=== PATIENT | female | born 1955 | race African-American/Black ===

== ENCOUNTER 2022-12-11 15:21 | Emergency (ER) | payer OTHER, MEDICAID ==
[~2022-12-11] VITALS: Ht 160 cm; Wt 90.0 kg
[2022-12-11] MEDS: HYDRALAZINE HCL 25MG TABLET PO ONE (17:18)
[2022-12-11] MEDS: ACETAMINOPHEN 325MG TABLET PO ONE (17:19)
[2022-12-11] MEDS: AMLODIPINE 5MG TABLET PO NR (21:45)
[2022-12-11] MEDS ORDERED: LOSA1TAB34 MT (21:50)
[2022-12-12 01:11] VITALS: BP 177/95
== END 2022-12-12 01:12 | disposition home or self-care (01) ==
LOC: ER 15:21
DX: I12.0 Hypertensive chronic kidney disease with stage 5 chronic kidney disease or end stage renal disease (principal); E11.22 Type 2 diabetes mellitus with diabetic chronic kidney disease; N18.6 End stage renal disease; Z99.2 Dependence on renal dialysis; J44.9 Chronic obstructive pulmonary disease, unspecified; I48.91 Unspecified atrial fibrillation; Z88.0 Allergy status to penicillin
CPT/HCPCS: 36415; 80048; 99284

== ENCOUNTER 2022-12-29 22:37 | Emergency (ER) | payer OTHER, MEDICAID ==
[~2022-12-29] VITALS: Ht 160 cm; Wt 84.0 kg
[~2022-12-29 22:37] MED LIST: LOSA1TAB34 MT
[2022-12-30 02:12] LABS: BASOPHILS % 2.1 % (0.0-2.0); EOSINOPHILS % 2.6 % (0.0-5.0); HEMATOCRIT. 35.2 % (36.0-48.0); HEMOGLOBIN. 11.6 g/dL (12.0-16.0); LYMPHOCYTES % 10.1 % (20.0-50.0); MEAN CORPUSCULAR HEMOGLOBIN 28.5 pg (28.0-32.0); MEAN CORPUSCULAR VOLUME 86.8 fL (81.0-99.0); MONOCYTES % 12.5 % (2.0-8.0); NEUTROPHILS % 72.7 % (40.0-76.0); PLATELET 83 x1000/uL (130-400); RED BLOOD CELL COUNT 4.06 mill/uL (4.2-5.4); RED CELL DISTRIBUTION WIDTH 18.7 % (11.6-14.6)
[2022-12-30 02:26] LABS: CHLORIDE 96 mEq/L (98-107)
[2022-12-30 02:59] LABS: D-DIMER 3.73 mg/L FEU (<0.50); INR 1.3; PARTIAL THROMBOPLASTIN TIME 42.7 sec (23.4-31.0); PROTHROMBIN TIME 13.8 sec (9.6-11.0)
[2022-12-30] MEDS ORDERED: LIDOCAINE HCL 1% 20ML VIAL (Pyxis) INJ INFIL ONE (10:00)
[2022-12-30] MEDS ORDERED: IOHEXOL-350 100 ML BOTTLE ONE (11:29)
[2022-12-30 13:29] VITALS: BP 158/76
== END 2022-12-30 19:40 | disposition home or self-care (01) ==
LOC: ER 22:57
DX: R60.0 Localized edema (principal); R06.02 Shortness of breath; E11.22 Type 2 diabetes mellitus with diabetic chronic kidney disease; I13.2 Hypertensive heart and chronic kidney disease with heart failure and with stage 5 chronic kidney disease, or end stage renal disease; I50.9 Heart failure, unspecified; N18.6 End stage renal disease; I48.91 Unspecified atrial fibrillation; E78.00 Pure hypercholesterolemia, unspecified; Z99.81 Dependence on supplemental oxygen; Z93.0 Tracheostomy status; Z99.2 Dependence on renal dialysis; Z79.01 Long term (current) use of anticoagulants; Z88.6 Allergy status to analgesic agent; Z88.0 Allergy status to penicillin
CPT/HCPCS: 36415; 36573; 71045; 71275; 80053; 83880; 85025; 85379; 85610; 85730; 93005; 93970; 93971; 99285; C1725; Q9967

== ENCOUNTER 2023-01-01 05:24 | Emergency (ER) | payer OTHER, MEDICAID ==
[~2023-01-01] VITALS: Ht 160 cm; Wt 82.0 kg
[2023-01-01] MEDS ORDERED: LIDOCAINE HCL/EPINEPHRINE 1%-EPI 1:100,000 20 ML VIAL INFIL ONE (06:00)
[2023-01-01] MEDS ORDERED: HYDRALAZINE 20MG/ML VIAL IV ONE (10:45)
[2023-01-01] MEDS ORDERED: HYDRALAZINE HCL 50MG TABLET PO ONE (13:00)
[2023-01-01 13:35] VITALS: BP 174/73
== END 2023-01-01 13:37 | disposition home or self-care (01) ==
LOC: ER 05:24
DX: S41.111A Laceration without foreign body of right upper arm, initial encounter (principal); I48.91 Unspecified atrial fibrillation; J44.9 Chronic obstructive pulmonary disease, unspecified; E78.00 Pure hypercholesterolemia, unspecified; X58.XXXA Exposure to other specified factors, initial encounter; Y93.89 Activity, other specified; Y92.9 Unspecified place or not applicable; I13.2 Hypertensive heart and chronic kidney disease with heart failure and with stage 5 chronic kidney disease, or end stage renal disease; E11.22 Type 2 diabetes mellitus with diabetic chronic kidney disease; N18.6 End stage renal disease; I50.9 Heart failure, unspecified; Z99.2 Dependence on renal dialysis; Z88.0 Allergy status to penicillin; Z88.6 Allergy status to analgesic agent; Z88.8 Allergy status to other drugs, medicaments and biological substances; Z93.0 Tracheostomy status
CPT/HCPCS: 12001; 99283; J3490

== ENCOUNTER 2023-03-11 15:05 | Emergency (ER) | payer OTHER, MEDICAID ==
[~2023-03-11] VITALS: Ht 172.7 cm; Wt 68.0 kg
[2023-03-11 17:04] LABS: HEMATOCRIT. 31.1 % (36.0-48.0); HEMOGLOBIN. 10.3 g/dL (12.0-16.0); MEAN CORPUSCULAR HEMOGLOBIN 28.3 pg (28.0-32.0); MEAN CORPUSCULAR VOLUME 85.5 fL (81.0-99.0); MEAN PLATELET VOLUME 8.5 fl (7.4-10.4); PLATELET 114 x1000/uL (130-400); RED BLOOD CELL COUNT 3.64 mill/uL (4.2-5.4)
[2023-03-11 17:12] LABS: CHLORIDE 95 mEq/L (98-107); INR 1.3
[2023-03-11 18:36] LABS: BG BASE EXCESS 5.2 mmol/L (-2.0-2.0); BG CARBOXYHEMOGLOBIN 0.4 % (0.5-1.5); BG DEOXYHEMOGLOBIN 1.2 % (0.0-5.0); BG FRACTION INSPIRED OXYGEN 36; BG HCO3 ACT 29.4 mmol/L (22.0-26.0); BG METHEMOGLOBIN 0.2 % (0.0-1.5); BG OXYGEN SATURATION 98.8 % (92.0-98.5); BG OXYHEMOGLOBIN 98.2 % (94.0-97.0); BG PCO2 41.6 mmHg (35.0-45.0); BG PH 7.467 (7.350-7.450); BG PO2 136.4 mmHg (75.0-100.0); BG SAMPLE SITE RIGHT BRACHIAL; BG TOTAL HEMOGLOBIN 10.9 g/dL (12.0-18.0); BG VENT MODE NASAL CANNULA
[2023-03-11] MEDS ORDERED: FAMOTIDINE 20MG/2ML VIAL IV ONE (19:00)
[2023-03-11] MEDS ORDERED: DIPHENHYDRAMINE 50MG/ML VIAL IV ONE (19:00)
[2023-03-11] MEDS ORDERED: FENTANYL CITRATE/PF 50MCG/ML 2ML VIAL IV ONE (19:00)
[2023-03-11] MEDS ORDERED: LEVOFLOXACIN 750MG PREMIX 150 ML IV ONE (20:15)
[2023-03-11 21:30] LABS: PLATELET ESTIMATE DECREASED
[2023-03-11 22:04] VITALS: BP 136/76
== END 2023-03-11 21:58 | disposition short-term general hospital (02) ==
LOC: ER 15:05 → CANBEDREQ 22:24
DX: J44.1 Chronic obstructive pulmonary disease with (acute) exacerbation (principal); E11.22 Type 2 diabetes mellitus with diabetic chronic kidney disease; I12.0 Hypertensive chronic kidney disease with stage 5 chronic kidney disease or end stage renal disease; N18.6 End stage renal disease; E78.00 Pure hypercholesterolemia, unspecified; R18.8 Other ascites; J90 Pleural effusion, not elsewhere classified; Z88.0 Allergy status to penicillin; Z88.6 Allergy status to analgesic agent
CPT/HCPCS: 36415; 36600; 71045; 74176; 80053; 82375; 82805; 83605; 83690; 83880; 84484; 85025; 85610; 93005; 96365; 96375; 99291; J1200; J1956; J3010; J3490

== ENCOUNTER 2023-03-24 08:56 | Emergency (ER) | payer OTHER, MEDICAID ==
[~2023-03-24] VITALS: Ht 160 cm; Wt 68.0 kg
[2023-03-24 09:36] LABS: CHLORIDE 98 mEq/L (98-107)
[2023-03-24 09:37] LABS: INR 1.3; PROTHROMBIN TIME 13.5 sec (9.6-11.0)
[2023-03-24 09:38] LABS: HEMATOCRIT. 30.1 % (36.0-48.0); MEAN CORPUSCULAR HEMOGLOBIN 28.8 pg (28.0-32.0); MEAN CORPUSCULAR VOLUME 86.6 fL (81.0-99.0); MEAN PLATELET VOLUME 9.3 fl (7.4-10.4); PLATELET 97 x1000/uL (130-400); RED BLOOD CELL COUNT 3.48 mill/uL (4.2-5.4); RED CELL DISTRIBUTION WIDTH 19.9 % (11.6-14.6)
[2023-03-24 16:15] VITALS: BP 148/75
[2023-03-24 18:15] LABS: PLATELET ESTIMATE DECREASED
== END 2023-03-24 16:30 | disposition home or self-care (01) ==
LOC: ER 08:56
DX: R18.8 Other ascites (principal); J44.1 Chronic obstructive pulmonary disease with (acute) exacerbation; E11.9 Type 2 diabetes mellitus without complications; I11.0 Hypertensive heart disease with heart failure; I50.9 Heart failure, unspecified; Z88.0 Allergy status to penicillin; Z88.6 Allergy status to analgesic agent
CPT/HCPCS: 36415; 80053; 85025; 99283

== ENCOUNTER 2023-04-15 13:30 | Emergency (ER) | payer OTHER, MEDICAID ==
[~2023-04-15] VITALS: Ht 175.3 cm; Wt 82.0 kg
[2023-04-15 13:48] VITALS: O2SAT 99
[2023-04-15 14:29] LABS: BASOPHILS % 0.9 % (0.0-2.0); DIFFERENTIAL COMMENT 0; LYMPHOCYTES % 15.4 % (20.0-50.0); MEAN CORPUSCULAR HEMOGLOBIN 29.7 pg (28.0-32.0); MEAN PLATELET VOLUME 7.9 fl (7.4-10.4); MONOCYTES % 12.3 % (2.0-8.0); NEUTROPHILS % 69.4 % (40.0-76.0); PLATELET 172 x1000/uL (130-400); RED BLOOD CELL COUNT 2.12 mill/uL (4.2-5.4); RED CELL DISTRIBUTION WIDTH 18.8 % (11.6-14.6); WHITE BLOOD COUNT 6.1 x1000/uL (4.5-11.0)
[2023-04-15 14:31] LABS: HEMOGLOBIN. 6.3 g/dL (12.0-16.0)
[2023-04-15 14:37] LABS: CHLORIDE 99 mEq/L (98-107); INDEX HEMOLYSI 1 (1-3); INDEX ICTERIC 1 (1-4); INDEX LIPEMIC 1 (1-3); POTASSIUM 3.7 mEq/L (3.5-5.1); SODIUM 135 mEq/L (136-145)
[2023-04-15 14:44] LABS: ALANINE AMINOTRANSFERASE 14 IU/L (13-61); ALBUMIN 2.4 g/dL (3.4-5.0); ASPARTATE AMINOTRANSFERASE 18 IU/L (15-37); BILIRUBIN TOTAL 0.5 mg/dL (0.1-1.0); CARBON DIOXIDE 31 mEq/L (21-32); CREATININE 4.1 mg/dL (0.6-1.3); GLUCOSE 227 mg/dL (70-105); PROTEIN TOTAL 7.8 g/dL (6.0-8.3); UREA NITROGEN BLOOD 24 mg/dL (7-21)
[2023-04-15 23:09] LABS: HEMATOCRIT 23.4 % (36.0-48.0); HEMOGLOBIN 7.7 g/dL (12.0-16.0)
[2023-04-16 00:59] VITALS: BP 151/55; PULSE 68; RESP 17; TEMP 98
== END 2023-04-16 03:02 | disposition short-term general hospital (02) ==
LOC: ER 13:30
DX: D64.9 Anemia, unspecified (principal); I12.9 Hypertensive chronic kidney disease with stage 1 through stage 4 chronic kidney disease, or unspecified chronic kidney disease; E11.22 Type 2 diabetes mellitus with diabetic chronic kidney disease; N18.9 Chronic kidney disease, unspecified; I11.0 Hypertensive heart disease with heart failure; I50.9 Heart failure, unspecified; I48.91 Unspecified atrial fibrillation; E87.70 Fluid overload, unspecified; E78.00 Pure hypercholesterolemia, unspecified; Z20.822 Contact with and (suspected) exposure to COVID-19; Z98.890 Other specified postprocedural states; Z88.0 Allergy status to penicillin; Z88.6 Allergy status to analgesic agent; Z88.8 Allergy status to other drugs, medicaments and biological substances
CPT/HCPCS: 99285; 71045; 87426; 80053; 85014; 85018; 85025; 86850; 86900; 86901; 86920; 93005; 36415; C9803; 36430; P9016

== ENCOUNTER 2023-05-03 13:26 | Emergency (ER) | payer OTHER, MEDICAID ==
[~2023-05-03] VITALS: Ht 170.2 cm; Wt 85.0 kg
[2023-05-03] MEDS ORDERED: LIDOCAINE HCL/EPINEPHRINE 1%-EPI 1:100,000 50 ML VIAL INFIL ONE (14:15)
[2023-05-03] MEDS ORDERED: LIDOCAINE HCL/EPINEPHRINE 1%-EPI 1:100,000 20 ML VIAL INFIL NR (14:30)
[2023-05-03 14:31] LABS: CHLORIDE 97 mEq/L (98-107)
[2023-05-03 14:33] LABS: HEMOGLOBIN. 11.1 g/dL (12.0-16.0); MEAN CORPUSCULAR HEMOGLOBIN 29.3 pg (28.0-32.0); MEAN CORPUSCULAR VOLUME 90.1 fL (81.0-99.0); MEAN PLATELET VOLUME 8.7 fl (7.4-10.4); PLATELET 123 x1000/uL (130-400); RED BLOOD CELL COUNT 3.78 mill/uL (4.2-5.4)
[2023-05-03 14:34] LABS: INR 1.2; PARTIAL THROMBOPLASTIN TIME 31.3 sec (23.4-31.0); PROTHROMBIN TIME 12.3 sec (9.6-11.0)
[2023-05-03 15:00] LABS: PLATELET ESTIMATE SLIGHTLY DECREASED
[2023-05-03] MEDS ORDERED: CEFTRIAXONE 2 G in DEXTROSE 5% WATER 50 ML IV NR (18:15)
[2023-05-03] MEDS ORDERED: METRONIDAZOLE 500MG PREMIX 100ML IV NR (18:15)
[2023-05-03] MEDS ORDERED: CEFTRIAXONE 2GM/50ML (ADDEASE) 50 ML IV ONE (18:15)
[2023-05-03 23:57] VITALS: BP 182/81
== END 2023-05-04 00:10 | disposition short-term general hospital (02) ==
LOC: ER 13:26
DX: D72.825 Bandemia (principal); I21.4 Non-ST elevation (NSTEMI) myocardial infarction; I12.0 Hypertensive chronic kidney disease with stage 5 chronic kidney disease or end stage renal disease; E11.22 Type 2 diabetes mellitus with diabetic chronic kidney disease; N18.6 End stage renal disease; Z99.2 Dependence on renal dialysis; I48.91 Unspecified atrial fibrillation
CPT/HCPCS: 36415; 71045; 74176; 80053; 82962; 83690; 85025; 85610; 85730; 96365; 96367; 99285; J0696; J3490; J7060